=== PATIENT | female | born 1935 | race Caucasian/White ===

== ENCOUNTER 2020-01-29 19:53 | Emergency (ER) | payer OTHER ==
--- OUTSIDE RECORDS SUMMARY | 2020-01-29 20:05 | XMS ---
:1935 Author Organization [facility] Care Team Providers Name Role Phone Bernardo Yost MD Unavailable Unavailable Bernardo Yost MD Unavailable Unavailable Bernardo Yost MD Unavailable Unavailable Bernardo Yost MD Unavailable Unavailable Reema Arteaga MD Unavailable Unavailable Nelly ROCHA, Physician Delisa Unavailable Unavailable ALLERS, DUSTY AUTOMAT[employer] CLIPPER [employer] STRIPPER Unavailable Unavailable ALLERS, DUSTY [employer]OMAT[employer]IPPER [employer] STRIPPER Unavailable Unavailable ALLERS, DUSTY [employer]OM[employer]IPPER [employer] STRIPPER Unavailable Unavailable ALLERS, DUSTY [employer]OM[employer]IPPER [employer] STRIPPER Unavailable Unavailable ALLERS, DUSTY [employer]OM[employer]IPPER [employer] STRIPPER Unavailable Unavailable Sintia ROCHA, Physician Rona Unavailable Unavailab MARY GRACE Vernon MD Unavailable Unavailable AZHERSergio MD Unavailable Unavailable AZHER N MD Unavailable Unavailable AZHER N MD Unavailable Unavailable AZHERSergio MD Unavailable Unavailable AZHER N MD Unavailable Unavailable AZHER N MD Unavailable Unavailable AZHER N MD Unavailable Unavailable AZHER N MD Unavailable Unavailable AZHER N MD Unavailable Unavailable AZHER N MD Unavailable Unavailable AZHER, N MD Unavailable Unavailable AZHER N MD Unavailable Unavailable AZHER N MD Unavailable Unavailable AZHER, N MD Unavailable Unavailable AZHER, N MD Unavailable Unavailable AZHER N MD Unavailable Unavailable Malena MD, DLaney Unavailable Unavailable Tillmon, R Unavailable Unavailable Navin ROCHA, Physician A Unavailable Unavailable Jeramie ROCHA, Physician U Unavailable Unavailable Priscilla ROCHA, Physician Unavailable Unavailable Peace Fletcher Unavailable Unavailable Care Unavailable Unavailable Rolo LEO NLaney Unavailable Unavailable Rubia Lopes, Physician Unavailable Unavailable Beulah Espinoza Unavailable Unavailable Brody ROCHA, Physician B Unavailable Unavailable ER Unavailable Unavailable LING Unavailable Unavailable LING Unavailable Unavailable LING Unavailable Unavailable LING Unavailable Unavailable LING Unavailable Unavailable LING Unavailable Unavailable LING Unavailable Unavailable LING Unavailable Unavailable LING Unavailable Unavailable LING Unavailable Unavailable LING Unavailable Unavailable LING Unavailable Unavailable LING Unavailable Unavailable LING Unavailable Unavailable LING Unavailable Unavailable LING Unavailable Unavailable LING Unavailable Unavailable Mary Fletcher MD Unavailable Unavailable Kresch Unavailable Unavailable Georgia ROCHA, Physician C Unavailable Unavailable Bakrley Unavailable Unavailable Vipul ROCHA, Physician J Unavailable Unavailable PAYMAN, N Unavailable Unavailable PAYMAN, N Unavailable Unavailable PAYMAN, N Unavailable Unavailable PAYMAN, N Unavailable Unavailable PAYMAN, N Unavailable Unavailable PAYMAN, N Unavailable Unavailable PAYMAN, N Unavailable Unavailable PAYMAN, N Unavailable Unavailable PAYMAN, N Unavailable Unavailable PAYMAN, N Unavailable Unavailable PAYMAN, N Unavailable Unavailable PAYMAN, N Unavailable Unavailable PAYMAN, N Unavailable Unavailable PAYMAN, N Unavailable Unavailable PAYMAN, N Unavailable Unavailable PAYMAN, N Unavailable Unavailable PAYMAN, N Unavailable Unavailable PAYMAN, N Unavailable Unavailable PAYMAN, N Unavailable Unavailable PAYMAN, N Unavailable Unavailable PAYMAN, N Unavailable Unavailable PAYMAN, N Unavailable Unavailable INTWALA, MD Unavailable Unavailable INTWALA, MD Unavailable Unavailable INTWALA, MD Unavailable Unavailable INTWALA, MD Unavailable Unavailable INTWALA, MD Unavailable Unavailable INTWALA, MD Unavailable Unavailable INTWALA, MD Unavailable Unavailable INTWALA, MD Unavailable Unavailable INTWALA, MD Unavailable Unavailable INTWALA, MD Unavailable Unavailable INTWALA, MD Unavailable Unavailable INTWALA, MD Unavailable Unavailable INTWALA, MD Unavailable Unavailable Deisi ROCHA, R. Unavailable Unavailable Re-disclosure Warning The records that you are about to access may contain information from federally- assisted alcohol or drug abuse programs. If such information is present, then the following federally mandated warning applies: This information has been disclosed to you from records protected by federal confidentiality rules (42 CFR part 2). The federal rules prohibit you from making any further disclosure of this information unless further disclosure is expressly permitted by the written consent of the person to whom it pertains or as otherwise permitted by 42 CFR part 2. A general authorization for the release of medical or other information is NOT sufficient for this purpose. The Federal rules restrict any use of the information to criminally investigate or prosecute any alcohol or drug abuse patient.The records that you are about to access may contain highly sensitive health information, the redisclosure of which is protected by Article 27-F of the [facility] Public Health law. If you continue you may haveaccess to information: Regarding HIV / AIDS; Provided by facilities licensed or operated by the [facility] Office of Mental Health; or Provided by the [facility] Office for People With Developmental Disabilities. If such information is present, then the following [facility] mandated warning applies: This information has been disclosed to you from confidential records which are protected by state law. State law prohibits you from making any further disclosure of this information without the specific written consent of the person to whom it pertains, or as otherwise permitted by law. Any unauthorized further disclosure in violation of state law may result in a fine or assisted sentence or both. A general authorization for the release of medical or other information is NOT sufficient authorization for further disclosure. Allergies and Adverse Reactions Type Description Substance Reaction Status Data Source(s ) 1 LISINOPRIL [facility]ids [facility] 2 [facility] Miscellaneous Tape Tape [place] [facility] allergy - [facility] Drug allergy No Known No Known [place] [facility] Allergies Allergies - [facility] Encounters Encounter Providers Location Date Indications Data Source(s ) Outpatient Attender: Emelia 01/10/2020 NEXT GEN ([facility] TillmonReferrer: 03:45:00 PM Medical [facility] Emelia Tillmon ED Medica l Group ) Outpatient Attender: Kyle 12/27/2019 NEXTGEN ([facility] Justine 07:41:00 AM [facility] ) Outpatient Attender: Gregg 10/17/2019 NEXTGE N ([facility] Alexis 08:29:00 AM [facility] ) Outpatient Attender: Kyle 10/03/2019 NEXTGEN ([facility] Justine 06:53:00 AM [facility] ) Outpatient Attender: Gregg 09/02/2019 NEXTGE N ([facility] Alexis 08:45:00 AM [facility]) Outpatient Attender: Emelia 08/05/2019 NEXT GEN ([facility] Tillmon 10:16:00 AM [facility]) Outpatient Attender: DUSTY 07/27/2019 NEXTGEN ([facility] [employer]ERS [employer] 08:39:00 AM [facility] PC) Outpatient Attender: Emelia 07/09/2019 NEXT GEN ([facility] Tillmon 10:45:00 AM [facility] Medical [facility] PC) Outpatient Attender: 07/08/2019 NEXTGE N ([facility] ChoudhuryReferrer: 03:00:00 PM Medic al - [facility] [place] Alexis EST Medica l [facility] PC) Outpatient Attender: Kyle 07/05/2019 NEXTGEN ([facility] Justine 09:46:00 AM Medical [facility]) Outpatient Attender: 06/25/2019 NEXTGE N ([facility] Alexis 10:17:00 AM [facility] Medical [facility] PC) Outpatient Attender: 06/23/2019 NEXTGEN ([facility] Justine 06:18:00 PM [facility] Medical [facility]) Outpatient Attender: Emelia 2019 NEXT GEN ([facility] [place]mon 09:07:00 AM [facility] Group PC) Outpatient Attender: Emelia 05/16/2019 NEXT GEN ([facility] TillmonReferrer: 02:30:00 PM [facility] Emelia Tillmon EST Medica [facility] PC) Outpatient Attender: Emelia 05/10/2019 NEXT GEN ([facility] [place] 03:06:00 PM [facility] Medical [facility] PC) Outpatient Attender: Emelia 05/10/2019 NEXT GEN ([facility] TillmonReferrer: 12:00:00 AM [facility] Emelia Tillmon EST Medica l [facility] PC) Outpatient Attender: 04/05/2019 NEXTGEN ([facility] Justine 07:52:00 AM [facility] Medical [facility] PC) Outpatient Attender: 03/18/2019 NEXTGE N ([facility] ChoudhuryReferrer: 03:15:00 PM Medic al [facility] [place] Alexis EST Medica l [facility] PC) Outpatient Attender: 03/10/2019 NEXTGE N ([facility] ChoudhuryReferrer: 12:00:00 AM Medic al - [facility] [place] Alex[place] EST Medica l Group PC) Outpatient Attender: DUSTY 03/04/2019 NEXTGEN ([facility] [employer] 02:32:00 PM Medical - [facility] Group PC) Outpatient Attender: Gregg 03/01/2019 NEXTGE N ([facility] [place] 07:57:00 AM Medical - [facility] PC) Outpatient Attender: DUSTY 02/28/2019 NEXTGEN ([facility] [employer] 10:04:00 AM Medical - [facility] PC) Outpatient Attender: DUSTY 02/07/2019 NEXTGEN ([facility] [employer] 09:04:00 AM Medical - [facility] PC) Outpatient Attender: Emelia 01/11/2019 NEXT GEN ([facility] TillmonReferrer: 03:00:00 PM Medical - [facility] [place] [facility]mon EDT Medica l Group PC) Outpatient Attender: MARY GRACE 01/10/2019 NEXTGEN ([facility] AZHER MDReferrer: 03:45:00 PM Medica l - [facility] MARY GRACE NOBLE MD ED Medical Group PC) Outpatient Attender: Kyle 01/10/2019 NEXTGEN ([facility] Justine 07:37:00 AM Medical - [facility] PC) Outpatient Attender: Emelia 01/04/2019 NEXT GEN ([facility] [place]mon 02:23:00 PM Medical - [facility] PC) Outpatient Attender: Emelia 12/08/2018 NEXT GEN ([facility] TillmonReferrer: 12:00:00 AM Medical - [facility] Emelia Tillmon EDT Medica l Group PC) Outpatient Attender: Gregg 12/07/2018 NEXTGE N ([facility] ChoudhuryReferrer: 02:45:00 PM Medic al - [facility] [place] Alexis EDT Medica l Group PC) Outpatient Attender: Gregg 12/04/2018 NEXTGE N ([facility] ChoudhuryReferrer: 01:00:00 PM Medic al - D[place] Alexis EDT Medica l Group PC) Outpatient Attender: Gregg 12/04/2018 NEXTGE N ([facility] [place] 11:33:00 AM Medical - [place] EDT Medical Group PC) Outpatient Attender: Emelia 11/29/2018 NEXT GEN ([facility] TillmonReferrer: 04:13:00 PM Medical - [place] [employer] [facility] EDT Medical Grou p PC) Outpatient Attender: Emelia 11/29/2018 NEXT GEN ([facility] [place] 03:28:00 PM [facility] Outpatient Attender: Emelia 11/24/2018 NEXT GEN ([facility] [place] 02:28:00 PM Medical - [place] EDT Medical Group PC) Outpatient Attender: Emelia 11/23/2018 NEXT GEN ([facility] TillmonReferrer: 04:13:00 PM Medical - [place] [facility] Lead EDT Medical Grou p PC) Outpatient Attender: Emelia 11/22/2018 NEXT GEN ([facility] TillmonReferrer: 08:00:00 AM Medical - [place] [facility] EDT Medical Grou p PC) Outpatient Attender: Emelia 11/19/2018 NEXT GEN ([facility] [place] 06:14:00 PM Medical - [facility] [place] [facility] ) Outpatient Attender: Emelia 11/18/2018 NEXT GEN ([facility] [place] 04:17:00 PM Medical - [facility] [place] [facility] ) Outpatient Attender: Kyle 11/18/2018 NEXTGEN ([facility] WeinbergerReferrer: 08:13:00 AM [facility] ) RubiaConsultant: 11/19/2018 Kyle Fletcher 12:00:00 AM EDT T Attender: Phys[facility] 01:15:00 PM Rosina mays M.D.Attender: Myron [facility] KreschAttender: 11/19/2018 ERAdmitter: 01:28:00 PM Physician Marilyn Barkley M.D.Solar Designer: DREW REYEZConsultant: NAN GARCIAonsultant: Physician Marilyn Barkley M.D.Solar Designer: Kyle Fletcher MD Patient discharged. Outpatient Attender: Emelia 11/17/2018 11:20:00 AM NEXTGEN ([facility] EDT Medical - [facility]) Outpatient Attender: Emelia 11/16/2018 03:54:00 PM NEXTGEN ([facility] EDT Medical - [facility]) Emergency Attender: Shanti Seth 11/14/2018 07:07:[address] [facility] DOAttender: EDT - 11/14/2018 [facility] ERAdmitter: Shanti Seth 08:36:00 PM EDT DO Outpatient Attender: Gregg 11/08/2018 07:36:00 AM NEXTGEN ([facility] Alexis EDT Medical - [facility]) Outpatient Attender: Emelia 11/03/2018 02:00:00 PM NEXTGEN ([facility] TillmonReferrer: EDT Medical - [facility] Emergency Attender: Namita 11/01/2018 11:16:[address] [facility] Deisi MDAttender: EDT - 11/01/2018 [facility] ERAdmitter: Namita 04:25:00 PM AMISH Lipscomb MD Outpatient Attender: Emelia 11/01/2018 09:11:00 AM NEXTGEN ([facility] EDT Medical - [facility]) Outpatient Attender: Gregg 10/22/2018 08:03:00 AM NEXTGEN ([facility] Alexis EDT Medical - [facility]) Outpatient Attender: Emelia 10/20/2018 08:09:00 AM NEXTGEN ([facility] [place] EDT Medical - [facility]) Outpatient Attender: DUSTY MISTRY 10/19/2018 10:06:00 AM NEXTGEN ([facility] [employer] EDT Medical - D[facility]) Outpatient Attender: MARY GRACE NOBLE 10/19/2018 10:05:00 AM NEXTGEN ([facility] MD EDT Medical - D[facility]) Outpatient Attender: DUSTY MISTRY 10/19/2018 10:05:00 AM NEXTGEN ([facility] [employer] EDT Medical - D[facility]) Outpatient Attender: Kyle 10/12/2018 07:44:00 AM NEXTGEN ([facility] Justine EDT Medical - [facility]) Outpatient Attender: Gregg 10/05/2018 11:30:00 AM NEXTGEN ([facility] Alexis EDT Medical - [facility]) Outpatient Attender: Kyle 08/31/2018 01:51:00 PM NEXTGEN ([facility] Justine EDT Medical - [facility]) Outpatient Attender: Gregg 08/20/2018 02:15:00 PM NEXTGEN ([facility] ChoudhuryReferrer: EDT Medica l - Dc [place] [facility] [facility] Medica l Group PC) Outpatient Attender: Emelia 08/17/2018 11:04:00 AM NEXTGEN ([facility] [place] EDT Medical - [facility]) Outpatient Attender: Emelia 08/06/2018 03:00:00 PM NEXTGEN ([facility] TillmonReferrer: EDT Medical - [facility]) Outpatient Attender: Gregg 08/05/2018 08:32:00 AM NEXTGEN ([facility] Alexis EDT Medical - [facility]) Outpatient Attender: Kyle 07/15/2018 07:04:00 PM NEXTGEN ([facility] Justine EDT Medical - [facility]) T Attender: Physician 01/25/2018 12:53:[address] [facility] - 01/28/2018 [facility] MDAdmitter: Physician 05:02:00 PM EDT Bernardo Bobo MDConsultant: Physician [facility] MDConsultant: Physician Rona Patricio MDConsultant: Physician Jenifer Ho MD Patient discharged. Inpatient Attender: Physician Marilyn 10/24/2017 11:15:0 0 PM Brent Barkley M.D.Admitter: Physician EDT - 10/27/2017 Rosina Barkley 02:14:00 PM EDT [facility] Prosper LopesSolar Designer: Physician Marilyn Barkley M.D. Inpatient Attender: Physician Salvatore 08/27/2017 02:53:00 PM [facility] Fifi Wells MDAdmitter: Physician EDT - 08/31/2017 Rosina Wells MDConsultant: 04:42:00 PM EDT [facility] SURYConsultant: Bernardo Yost MDConsultant: Reema Arteaga MDConsultant: Physician Salvatore Wells MDConsultant: Physician Re Skinner MDConsultant: Eulalio Guy MDConsultant: Physician Delisa Villegas MDConsultant: Physician Ney Matthew MD Medications Medication Brand Start Product Dose Route Administrative Pharmacy [facility] Indications Reaction Description Data Name Date Form Instructions Instructions Source(s) Amoxicillin AMOXIC 01/09/ take 1 tablet RP NEXTGEN 500 MG Oral ILLIN 2019 by oral route ([facility] Tablet 500 12:00: every 8 hours Medical - mg 500 mg 00 AM [facility]) This may be an active medication. No end date is available. atorvastatin 20 MG LIPITOR 10/17/2019 TAKE 1 RP NEXTGEN Oral Tablet 12:00:00 AM EDT TABLET BY ([facility] [Lipitor] 20 mg 20 MOUTH EVERY Medical - Mt mg DAY [facility]) This may be an active medication. No end date is available. 325 mg (65 mg 10/03/2019 12:00:00 TAKE 1 TABLET RP NEXTGEN ([facility] iron) 325 mg AM EDT BY MOUTH TWICE Medical - Mt Kisc (65 mg iron) A DAY Medica l Group ) This may be an active medication. No end date is available. 24 HR metoprolol TOPROL XL 09/02/2019 TAKE 1 RP NEXTGEN succinate 25 MG 12:00:00 AM EDT TABLET BY ([facility] Extended Release MOUTH EVERY Medical - Mt Oral Tablet DAY [facility]ical [Toprol] 25 mg Group ) 25 mg This may be an active medication. No end date is available. Donepezil DONEPEZIL HCL 07/27/2019 TAKE 1 RP NEXTGEN hydrochloride 10 12:00:00 AM TABLET BY ([facility] MG Oral Tablet 10 EDT MOUTH EVERY Medical - Mt mg 10 mg DAY IN THE [facility] EVENING Group PC) This may be an active medication. No end date is available. pantoprazole 40 MG PROTONIX 07/09/2019 TAKE 1 RP NEXTGEN Delayed Release 12:00:00 AM EST TABLET BY ([facility] Oral Tablet MOUTH TWICE M edical - Mt [Protonix] 40 mg A DAY [facility] Medical 40 mg Group ) This may be an active medication. No end date is available. 325 mg (65 mg 07/05/2019 12:00:00 TAKE 1 TABLET RP NEXTGEN ([facility] iron) 325 mg AM EST BY MOUTH TWICE Medical - [facility] Camp[facility] (65 mg iron) A DAY Medica l Group ) This may be an active medication. No end date is available. atorvastatin 20 MG LIPITOR 06/25/2019 TAKE 1 RP NEXTGEN Oral Tablet 12:00:00 AM EST TABLET BY ([facility] [Lipitor] 20 mg 20 MOUTH EVERY Medical - Mt mg DAY [facility]) This may be an active medication. No end date is available. Sucralfate 1000 SUCRALFATE 06/23/2019 TAKE 1 TABLET RP NEXTGEN MG Oral Tablet 12:00:00 AM EST 4 TIMES A DAY ([facility] 1 gram 1 gram ON EMPTY Sd dical - Dc STOMACH, 1 [facility] Med ical HOUR BEFORE Group PC ) MEALS AND AT BEDTIME This may be an active medication. No end date is available. Levothyroxine LEVOTHYROXINE 2019 TAKE 1/2 RP NEXTGEN Sodium 0.075 MG SODIUM 12:00:00 AM TABLET BY ([facility] Oral Tablet 75 EST ORAL ROUTE Medical - Dc mcg 75 mcg EVERY DAY [facility] Medical 05/05 Group ) This may be an active medication. No end date is available. Memantine MEMANTINE HCL 03/04/2019 TAKE 1 RP NEXTGEN hydrochloride 5 12:00:00 AM TABLET BY ([facility] MG Oral Tablet 5 EDT MOUTH Me dical - Mt mg 5 mg TWICE A [facility] Med ical DAY Group ) This may be an active medication. No end date is available. Donepezil DONEPEZIL HCL 02/28/2019 TAKE 1 RP NEXTGEN hydrochloride 10 12:00:00 AM TABLET BY ([facility] MG Oral Tablet 10 EDT ORAL ROUTE Medical - Mt mg 10 mg EVERY DAY [facility] IN THE Group ) EVENING This may be an active medication. No end date is available. Furosemide 20 MG LASIX 12/07/2018 take 1 by RP NEXTGEN Oral Tablet 12:00:00 AM EDT oral route ([facility] [Lasix] 20 mg 20 every day Medical - Mt mg PRN [facility] ) This may be an active medication. No end date is available. Aspirin 81 MG ASPIR 81 12/07/2018 take 1 by RP NEXTGEN Delayed 12:00:00 AM EDT oral route ([facility] Release Oral every day Me dical - Mt Tablet 81 mg [facility] edical 81 mg Group ) This may be an active medication. No end date is available. 24 HR metoprolol TOPROL XL 12/04/2018 TAKE 1 RP NEXTGEN succinate 25 MG 12:00:00 AM EDT TABLET BY ([facility] Extended Release MOUTH EVERY Medical - Mt Oral Tablet DAY [facility] dical [Toprol] 25 mg Group ) 25 mg This may be an active medication. No end date is available. Aspirin 81 aspirin 81 11/19/2018 81.0 Oral [place] MG Delayed mg oral 10:13:00 AM mg 81 mg, = 1 tab, Oral, Daily, # 30 tab, 0 Refill(s), Pharmacy: [facility]/pharmacy #[id number], 1 tab Oral Daily Health - Release enteric EDT [place] Oral Tablet coated Bro[place] rs aspirin 81 tablet Medical mg oral Center enteric coated tablet Docusate Colace 100 11/19/2018 100.0 Oral [place] Sodium 100 mg oral 10:09:00 AM mg 100 mg, = 1 cap, Oral, BID, # 20 cap, 0 Refill(s), for constipation, Pharmacy: [facility]/pharmacy #[id number], 1 cap Oral BID,PRN:for constipation Health - MG Oral capsule EDT [place] Capsule Brothers Colace 100 Medical mg oral Center capsule Mupirocin MUPIROCIN 11/03/2018 apply by RP NEXTGEN 0.02 MG/MG 12:00:00 AM topical ([facility] Topical EDT route 3 t Medical Ointment 2 times - Mt % 2 % every day [place] a small Medical amount to Group PC) the affected area This may be an active medication. No end date is available. Cephalexin 500 Keflex 500 11/01/2018 500.0 Oral [place] MG Oral mg oral 04:04:00 PM mg 500 mg, = 1 cap, Oral, q8hr (specified start), # 21 cap, 0 Refill(s), Pharmacy: [id number], 1 cap Oral q8hr (specified start),x7 day(s) Health - Capsule Keflex capsule EDT [facility] 500 mg oral [facility] pantoprazole PROTONIX 10/20/2018 take 1 RP NEXTGEN 40 MG Delayed 12:00:00 AM tablet ([facility] Release Oral EDT by oral t Me dical Tablet route 2 - Mt [Protonix] 40 times [place] mg 40 mg every Medical day Group PC) This may be an active medication. No end date is available. "" "" 02/02/2018 12:00:00 AM 1 by mouth daily RP NEXTGEN ([facility] EDT Medical - Mt [facility]) This may be an active medication. No end date is available. Docusate Colace 100 01/28/2018 Capsule 100.0 Oral [place] Sodium 100 mg oral 10:13:00 AM mg 100 mg, = 1 cap, Oral, BID, # 60 cap, 0 Refill(s), [facility]acy[id number], 1 cap Oral BID Health - MG Oral capsule EDT [place] [facility] Medical mg oral Center capsule Sucralfate sucralfate 01/24/2018 Tablet 1.0 g Oral [place] 1000 MG Oral 1 g oral 10:24:00 PM 1 gm, = 1 tab, Oral, With meals Health - Tablet tablet EDT [place] sucralfate 1 Brother s g oral Medical tablet Center Levothyroxin levothyroxi 01/24/2018 Tablet 37.5 Oral [place] e Sodium ne 75 mcg 10:24:00 PM ug 37.5 mcg, = 0.5 tab, Oral, Daily Health - 0.075 MG (0.075 mg) EDT [place] Oral Tablet oral tablet B rothers levothyroxin Medical e 75 mcg Center (0.075 mg) oral tablet 7 ACTUAT INCRUSE 01/05/2018 INHA RP NE XTGEN umeclidinium ELLIPTA 12:00:00 AM LE 1 ([facility] 0.0625 EDT PUFF t Medical MG/ACTUAT BY - Mt Dry Powder INHA [place] Inhaler LATI Medical [Incruse] ON Group PC) 62.5 ROUT mcg/actuatio E n 62.5 EVER mcg/actuatio Y n DAY AT THE SAME TIME EACH DAY This may be an active medication. No end date is available. 17 ML ferumoxytol FERAHEME 11/10/2017 510 mg IV RP NEXTGEN 30 MG/ML Injection 12:00:00 AM EDT day 1 and ([facility] [Feraheme] 510 day 8 Medi keara - Mt mg/17 mL (30 [place] M edical mg/mL) 510 mg/17 Norma up PC) mL (30 mg/mL) This may be an active medication. No end date is available. Ferrous [id number] 10/25/2017 Tablet 325.0 Oral N uvance Sulfate 01:55:00 AM mg 325 mg, Or al, [facility] - EDT [facility] Breo Ellipta [id number] 08/27/2017 1.0 Inhalation [place] 200 mcg-25 03:23:00 PM 1 puff( s), INH, QHS, 0 Refill(s) Health - mcg/inh EDT [place] [facility] 30 ACTUAT BREO 08/26/2017 inhale 1 RP NEXTGEN fluticasone ELLIPTA 12:00:00 AM puff by ([facility] furoate 0.2 EDT inhalatio t M edical MG/ACTUAT / n route - Mt vilanterol every day Kisc o 0.025 at the Medical MG/ACTUAT same time Group PC) Dry Powder each day Inhaler [Breo] 200 mcg-25 mcg/dose 200 mcg-25 mcg/dose This may be an active medication. No end date is available. Pantoprazole [id number] 05/29/2017 Enteric 40.0 Oral [place] 10:09:00 PM Coated mg 40 mg, Oral , Daily [facility] Tablet [facility] multivitamin [id number] 05/29/2017 Tablet 1.0 Oral [place] 10:06:00 PM 1 tab, Oral, Daily [facility] "" "" 12/17/2016 take 1 RP NEXTGE N 12:00:00 AM tablet ([facility] EDT by oral t [facility] This may be an active medication. No end date is available. Vitamin E 1000 VITAMIN E 12/17/2016 take 1 po RP NEXTGEN UNT Oral 12:00:00 AM EDT daily ([facility] Capsule 1,000 Medica l - Mt unit 1,000 [employer] Med ical unit Group [facility]) This may be an active medication. No end date is available. Plavix [id number] 05/18/2016 75.0 Oral Nuvan ce 02:52:00 PM mg 75 mg, Oral, Daily, 0 Refill(s) [facility] Incruse Ellipta [id number] 05/15/2016 Oral 62.5 Inhalation [place] 04:29:00 PM Inhaler ug 62.5 mcg = , INH, QAM, 0 Refill(s) [facility] donepezil [id number] 05/14/2016 Tablet 10.0 Oral [place] 10:41:00 AM mg 10 mg, Oral, QHS, 0 Refill(s) [facility] Metoprolol [id number] 05/14/2016 Extended 25.0 Oral [place] Succinate ER 10:41:00 AM Release mg 25 mg, Oral, Daily, 0 Refill(s) [facility] Tablet [facility] atorvaSTATin [id number] 05/14/2016 Tablet 20.0 Oral [place] 10:41:00 AM mg 20 mg, Oral, QHS, 0 Refill(s) [facility] vitamin E [id number] 05/14/2016 Capsule 1000. Oral [place] 10:41:00 AM 0 1,000 IntUnit , Oral, Daily, 0 Refill(s) [facility] [iU] [facility] spironolactone [id number] 05/14/2016 Tablet 25.0 Oral [place] 10:41:00 AM mg 25 mg, Oral, QHS, 0 Refill(s) [facility] Insurance Providers Payer name Policy type Policy ID Covered Covered constitution party's Policy P leni / Coverage constitution party ID relationship to [place] Inf ormation type cancino MEDICARE [id number] B AETN Aetna [id number] Healthcare Medicare AETN Aetna [id number] Healthcare Medicare WELC [employer] [id number] 1 [id number] [facility] Option PPO MDCR [facility] [id number] Medicare HMO Problems, Conditions, and Diagnoses Code Display Name Description Problem Type Effective Data Dates Source(s) J44.9 Chronic obstructive Chronic obstructive Diagnosis NEXTGEN pulmonary disease, pulmonary disease, 03:45:00 PM ([facility] unspecified unspecified [facility]) I10 Essential (primary) Essential (primary) Diagnosis NEXTGEN hypertension hypertension 03:45:00 PM [facility] N39.0 Urinary tract Urinary tract Diagnosis 01/10/2020 NEXTGEN infection, site not infection, site not 03:45:0 0 PM ([facility] specified specified [facility]) D63.1 Anemia in chronic Anemia in chronic Diagnosis 01/10/2020 NEXTGEN kidney disease kidney disease 03:45:00 PM ([facility]) E03.9 Hypothyroidism, Hypothyroidism, Diagnosis 01/10/2020 NEXT GEN unspecified unspecified 03:45:00 PM ([facility]) I47.1 Supraventricular Supraventricular Diagnosis 07/08/2019 NE XTGEN tachycardia tachycardia 03:00:00 PM ([facility]) I34.0 Nonrheumatic mitral Non-rheumatic mitral Diagnosis 2019 NEXTGEN (valve) regurgitation 03:00:00 PM ([facility] Medical - t [facility]) I35.0 Nonrheumatic aortic Nonrheumatic aortic Diagnosis NEXTGEN (valve) stenosis valve stenosis 03:00:00 PM ([facility]) I42.9 Cardiomyopathy, Cardiomyopathy, Diagnosis 07/08/2019 NEXT GEN unspecified unspecified 03:00:00 PM ([facility]) R60.0 Localized edema Bilateral lower Diagnosis 07/08/2019 NEXT GEN extremity edema 03:00:00 PM ([facility]) 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.1 Persistent Persistent Diagnosis 05/10/2019 NEXTGEN proteinuria, proteinuria, 12:00:00 AM ([facility] t unspecified unspecified [facility]) E78.00 Pure Pure Diagnosis 05/10/2019 NEXTGEN hypercholesterolemia hypercholesterolemia 12:00 :00 AM ([facility] , unspecified , unspecified [facility]) D50.0 Iron deficiency Iron deficiency Diagnosis 05/10/2019 NEXT GEN anemia secondary to anemia secondary to 12:00:0 0 AM ([facility] blood loss (chronic) blood loss (chronic) [facility]) I50.9 Heart failure, Heart failure, Diagnosis 05/10/2019 NEXTGE N unspecified unspecified 12:00:00 AM ([facility]) D64.9 Anemia, unspecified Anemia, unspecified Diagnosis NEXTGEN 12:00:00 AM ([facility]) R06.02 Shortness of breath Exertional shortness Diagnosis 2018 NEXTGEN of breath 03:15:00 PM ([facility] EST Medical [facility]) N18.4 Chronic kidney Chronic kidney Diagnosis 01/11/2019 NEXTGE N disease, stage 4 disease, stage 4 03:00:00 PM ( [facility] (severe) (severe) EDT [facility]) K92.2 Gastrointestinal Gastrointestinal Diagnosis 11/17/2018 Nu jerry hemorrhage, hemorrhage, 01:15:00 PM Health - unspecified unspecified EDT [facility] Z13.820 Encounter for Screening for Diagnosis 08/06/2018 NEXTGEN screening for osteoporosis 03:00:00 PM ([facility] osteoporosis EDT [facility]) D47.3 Essential Essential Diagnosis 08/06/2018 NEXTGEN (hemorrhagic) (hemorrhagic) 03:00:00 PM ([facility] thrombocythemia thrombocythemia EDT [facility]) Z00.00 Encounter for Medicare annual Diagnosis 08/06/2018 NEXTGE N general adult wellness visit, 03:00:00 PM ([facility] [place] [facility] medical examination subsequent EDT Medic al - Dc without abnormal [facility] Medical [facility]) R41.82 Altered mental Altered mental Diagnosis 01/24/2018 Nuvanc e status, unspecified status, unspecified 08:16:0 0 [facility] Z[facility] 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 [place] use of aspirin use of aspirin 08:16:00 PM Healt - [facility] D50.9 Iron deficiency Iron deficiency Diagnosis 01/24/2018 Nuva nce anemia, unspecified anemia, unspecified 08:16:0 0 [facility] 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 01/24/2018 [place] supplemental oxygen supplemental oxygen 08:16:0 0 PM [facility] K27.9 Peptic ulcer, site Peptic ulcer, site Diagnosis 8 [place] unspecified, unspecified, 08:16:00 PM Health - unspecified as acute unspecified as acute EDT [place] or chronic, without or chronic, without [facility] hemorrhage or hemorrhage or Medical perforation perforation Center E03.9 Hypothyroidism, Hypothyroidism, Diagnosis 01/24/2018 Geraldineva nce unspecified unspecified 08:16:00 PM Health - EDT [facility] F03.90 Unspecified dementia Unspecified dementia Diagnosis 01/24 [place] without behavioral without behavioral 08:16:00 PM Health - disturbance disturbance EDT [facility] N18.3 Chronic kidney Chronic kidney Diagnosis 01/24/2018 Faithc e disease, stage 3 disease, stage 3 08:16:00 PM H ealth - (moderate) (moderate) EDT [facility] Z95.5 Presence of coronary Presence of coronary Diagnosis 01/24 Brent angioplasty implant angioplasty implant 08:16:0 0 PM Health - and graft and graft EDT [facility] I25.10 Atherosclerotic Atherosclerotic Diagnosis 01/24/2018 Darion webstere heart disease of heart disease of 08:16:00 PM H ealth - [place] coronary wrangell coronary EDT Anjelica ar artery without artery without Brothe rs angina pectoris angina pectoris [facility] Z66 Do not resuscitate Do not resuscitate Diagnosis 8 [place] 08:16:00 PM Health - EDT [facility] B96.20 Unspecified Unspecified Diagnosis 01/24/2018 Brent Escherichia coli [E. Escherichia coli [E. 08:16 :00 PM Health - coli] as the cause coli] as the cause EDT [place] of diseases of diseases [place] classified elsewhere classified elsewhere [facility] Z68.1 Body mass index Body mass index Diagnosis 01/24/2018 Darion webstere (BMI) 19.9 or less, (BMI) 19.9 or less, 08:16:0 0 PM Health - adult adult EDT [facility] J44.0 Chronic obstructive Chronic obstructive Diagnosis 018 Faithce pulmonary disease pulmonary disease 08:16:00 PM Health - with acute lower with acute lower EDT [facility] respiratory respiratory [place] infection infection [facility] N39.0 Urinary tract Urinary tract Diagnosis 01/24/2018 Brent infection, site not infection, site not 08:16:0 0 PM Health - specified specified EDT [facility] J18.9 Pneumonia, Pneumonia, Diagnosis 01/24/2018 [place] unspecified organism unspecified organism 08:16 :00 PM Health - EDT [facility] A41.9 Sepsis, unspecified Sepsis, unspecified Diagnosis 018 [place] organism organism 08:16:00 PM [facility] - EDT [facility] J44.1 Chronic obstructive Chronic obstructive Diagnosis 018 [place] pulmonary disease pulmonary disease 11:15:00 PM Health - with (acute) with (acute) EDT [place] exacerbation exacerbation [facility] I50.23 Acute on chronic Acute on chronic Diagnosis 10/24/2017 Nu jerry systolic systolic 11:15:00 PM Health - (congestive) heart (congestive) heart EDT [place] failure failure [facility] D64.9 Anemia, unspecified Anemia, unspecified Diagnosis 018 [place] 02:53:00 PM [facility] - EDT [facility] Surgeries/Procedures Procedure Description Date Indications Data Source(s) IIV NO PRSV INCREASED AG IIV NO PRSV INCREASED AG 01/10/2020 NEXTGEN IM IM 12:00:00 ([facility]) IMMUNIZATION ADMIN IMMUNIZATION ADMIN 01/10/2020 NEX TGEN 12:00:00 ([facility]) OFFICE/OUTPATIENT VISIT OFFICE/OUTPATIENT VISIT 01/10/2020 NEXTGEN EST EST 12:00:00 ([facility]) ELECTROCARDIOGRAM ELECTROCARDIOGRAM 07/08/2019 NEXTG EN COMPLETE COMPLETE 12:00:00 ([facility]) COMPLETE CBC W/AUTO DIFF COMPLETE CBC W/AUTO DIFF 05/10/2019 NEXTGEN WBC WBC 12:00:00 ([facility]) ASSAY THYROID STIM ASSAY THYROID STIM 05/10/2019 NEX TGEN HORMONE HORMONE 12:00:00 ([facility]) ASSAY OF FREE THYROXINE ASSAY OF FREE THYROXINE 05/10/2019 NEXTGEN 12:00:00 ([facility]) IRON BINDING TEST IRON BINDING TEST 05/10/2019 NEXTG EN 12:00:00 ([facility]) VITAMIN D 25 HYDROXY VITAMIN D 25 HYDROXY 05/10/2019 NEXTGEN 12:00:00 ([facility]) LIPID PANEL LIPID PANEL 05/10/2019 NEXTGEN 12:00:00 ([facility]) COMPREHEN METABOLIC COMPREHEN METABOLIC 05/10/2019 N EXTGEN PANEL PANEL 12:00:00 ([facility]) ROUTINE VENIPUNCTURE ROUTINE VENIPUNCTURE 05/10/2019 NEXTGEN 12:00:00 [facility] URINALYSIS AUTO W/SCOPE URINALYSIS AUTO W/SCOPE 05/10/2019 NEXTGEN 12:00:00 ([facility]) Administration of Admin influenza virus 01/11/2019 N EXTGEN influenza virus vaccine vac 12:00:00 ([facility]) SUBSEQUENT HOSPITAL CARE SUBSEQUENT HOSPITAL CARE 11/19/2018 NEXTGEN 12:00:00 ([facility]) INITIAL HOSPITAL CARE INITIAL HOSPITAL CARE 11/18/2018 NEXTGEN 12:00:00 ([facility]) OFFICE/OUTPATIENT VISIT OFFICE/OUTPATIENT VISIT 11/03/2018 NEXTGEN EST EST 12:00:00 [facility] OFFICE/OUTPATIENT VISIT OFFICE/OUTPATIENT VISIT 08/06/2018 NEXTGEN EST EST 12:00:00 ([facility]) Annual wellness visit, Ppps, subseq visit 08/06/2018 NEXTGEN includes a personalized 12:00:00 ([facility] prevention plan of [facility] service (pps), [facility] subsequent visit Group ) EGD - SN (None) 08/28/2017 Brent caceres 04:28:00 - [place] PM [facility] auto-populated from documented surgical case EGD - SN (None) 05/21/2017 01:26:00 PM EST [facility] auto-populated from documented surgical case PCI to RCA 05/14/2016 12:00:00 AM EST N [facility] PCI to RCA 05/04/1999 12:00:00 AM EST N [facility] head shunt insertion post 05/04/1986 12:00:00 AM EST [facility] colon resection [facility] cautorized nose [facility] Results ID Date Data Source [id number] 11/19/2018 06:04:00 AM EDT [facility] Name Value Range Interpretation Description Data Sup porting Code Source(s) Document(s ) WBC 5.6 4.0-10.5 NO [place] x10(3)/[facility] RBC 3.36 3.80-5.20 LO [place] x10(6)/[facility] Hgb 10.2 11.4-15.1 LO [place] gm/dL [facility] Hct 29.9 % 36.0-46.0 [facility] MCV 89 fL 80-98 [facility] MCH 30.3 pg 26.0-34.0 NO [facility] MCHC 33.9 32.0-36.0 NO [place] gm/dL [facility] RDW 15.3 % 11.0-15.0 [facility] Platelet 288 150-400 NO [place] x10(3)/[facility] MPV 8.3 fL 8.5-13.0 [facility] ID Date Data Source [id number] 11/19/2018 06:04:00 AM EDT [facility] Name Value Range Interpretation Description Data Sup porting Code Source(s) Document(s ) Neut Auto 77.9 % 50.0-80.0 NO [facility] Lymph Auto 11.4 % 14.0-44.0 LO [facility] Ray Auto 7.7 % 0.0-12.0 NO [facility] Eos Auto 2.3 % 0.0-7.0 NO [facility] Baso Auto 0.7 % 0.0-3.0 NO [facility] Neut 4.3 2.0-8.4 NO [place] Absolute x10(3)/[facility] Lymph 0.6 0.6-4.8 NO [place] Absolute x10(3)/[facility] Ray 0.4 0.0-1.1 NO [place] Absolute x10(3)/[facility] Eos Absolute 0.1 0.0-0.5 NO [place] x10(3)/[facility] Baso 0.0 0.0-0.3 NO [place] Absolute x10(3)/[facility] ID Date Data Source [id number] 11/18/2018 10:51:00 AM EDT [facility] Name Value Range Interpretation Description Data Sup porting Code Source(s) Document(s ) Neut Auto 85.9 % 50.0-80.0 [facility] Lymph Auto 7.9 % 14.0-44.0 LO [facility] Ray Auto 4.5 % 0.0-12.0 NO [facility] Eos Auto 1.2 % 0.0-7.0 NO [facility] Baso Auto 0.5 % 0.0-3.0 NO [facility] Neut 5.5 2.0-8.4 NO [place] Absolute x10(3)/[facility] Lymph 0.5 0.6-4.8 LO [place] Absolute x10(3)/[facility] Ray 0.3 0.0-1.1 NO [place] Absolute x10(3)/[facility] Eos Absolute 0.1 0.0-0.5 NO [place] x10(3)/[facility] Baso 0.0 0.0-0.3 NO [place] Absolute x10(3)/[facility] ID Date Data Source [id number] 11/18/2018 10:51:00 AM EDT [facility] Name Value Range Interpretation Description Data Sup porting Code Source(s) Document(s ) WBC 6.4 4.0-10.5 NO [place] x10(3)/[facility] RBC 3.64 3.80-5.20 LO [place] x10(6)/[facility] Hgb 10.9 11.4-15.1 LO [place] gm/dL [facility] Hct 32.6 % 36.0-46.0 [facility] MCV 90 fL 80-98 NO [facility] MCH 30.0 pg 26.0-34.0 NO [facility] MCHC 33.5 32.0-36.0 NO [place] gm/dL [facility] RDW 15.5 % 11.0-15.0 [facility] Platelet 292 150-400 NO [place] x10(3)/[facility] MPV 8.0 fL 8.5-13.0 [facility] ID Date Data Source [id number] 11/18/2018 07:13:00 AM EDT [facility] Name Value Range Interpretation Code Description Data Yesi rce(s) Supporting Document(s ) eGFR-AA 37 >=60 LO [facility] mL/min/1.[address] [place] [address] Added by Discern Rule GLB_ADD_GFR_BMP eGFR-SANJANA 30 mL/min/1.73m2 >=60 LO [facility] Added by Discern Rule GLB_ADD_GFR_BMP ID Date Data Source [id number] 11/18/2018 07:13:00 AM EDT [facility] Name Value Range Interpretation Description Data Sup porting Code Source(s) Document(s ) Glucose Lvl 86 mg/dL 65-99 NO [facility] BUN 35.0 6.0-20.0 HI [place] mg/dL [facility] Creatinine 1.63 0.40-1.0 HI [place] mg/dL 0 [facility] BUN/Creat 21.5 7.0-29.0 NO [place] Ratio ratio [facility] Sodium Lvl 142 136-145 NO [place] mmol/L [facility] Potassium Lvl 3.8 3.5-5.1 NO [place] mmol/L [facility] Chloride 112 98-107 HI [place] mmol/L [facility] CO2 20 23-29 LO [place] mmol/L [facility] AGAP 10 5-15 NO [facility] Calcium Lvl 8.5 8.6-10.0 LO [place] mg/dL [facility] ID Date Data Source [id number] 11/18/2018 07:01:00 AM EDT [facility] Name Value Range Interpretation Description Data Sup porting Code Source(s) Document(s ) Neut Auto 82.3 % 50.0-80.0 HI [facility] Lymph Auto 8.4 % 14.0-44.0 LO [facility] Ray Auto 7.0 % 0.0-12.0 NO [facility] Eos Auto 1.8 % 0.0-7.0 NO [facility] Baso Auto 0.5 % 0.0-3.0 NO [facility] Neut 5.6 2.0-8.4 NO [place] Absolute x10(3)/[facility] Lymph 0.6 0.6-4.8 NO [place] Absolute x10(3)/[facility] Ray 0.5 0.0-1.1 NO [place] Absolute x10(3)/[facility] Eos Absolute 0.1 0.0-0.5 NO [place] x10(3)/[facility] Baso 0.0 0.0-0.3 NO [place] Absolute x10(3)/[facility] ID Date Data Source [id number] 11/18/2018 07:01:00 AM EDT [facility] Name Value Range Interpretation Description Data Sup porting Code Source(s) Document(s ) WBC 6.8 4.0-10.5 NO [place] x10(3)/[facility] RBC 3.36 3.80-5.20 LO [place] x10(6)/[facility] Hgb 10.1 11.4-15.1 LO [place] gm/dL [facility] Hct 30.0 % 36.0-46.0 LO [facility] MCV 89 fL 80-98 NO [facility] MCH 29.9 pg 26.0-34.0 NO [facility] MCHC 33.6 32.0-36.0 NO [place] gm/dL [facility] RDW 14.9 % 11.0-15.0 NO [facility] Platelet 294 150-400 NO [place] x10(3)/[facility] MPV 7.9 fL 8.5-13.0 [facility] due @ 945 11/18/2018 02:15:37 EDT AW ID Date Data Source [id number] 11/18/2018 02:16:00 AM EDT [facility] Name Value Range Interpretation Description Data Sup porting Code Source(s) Document(s ) Neut Auto 80.7 % 50.0-80.0 [facility] Lymph Auto 9.5 % 14.0-44.0 [facility] Ray Auto 7.4 % 0.0-12.0 NO [facility] Eos Auto 1.7 % 0.0-7.0 NO [facility] Baso Auto 0.7 % 0.0-3.0 NO [facility] Neut 5.1 2.0-8.4 NO [place] Absolute x10(3)/[facility] Lymph 0.6 0.6-4.8 NO [place] Absolute x10(3)/[facility] Ray 0.5 0.0-1.1 NO [place] Absolute x10(3)/[facility] Eos Absolute 0.1 0.0-0.5 NO [place] x10(3)/[facility] Baso 0.0 0.0-0.3 NO [place] Absolute x10(3)/[facility] ID Date Data Source [id number] 11/18/2018 02:16:00 AM EDT [facility] Name Value Range Interpretation Description Data Sup porting Code Source(s) Document(s ) WBC 6.3 4.0-10.5 NO [place] x10(3)/[facility] RBC 3.51 3.80-5.20 LO vance x10(6)/[facility] Hgb 10.3 11.4-15.1 LO [place] gm/dL [facility] Hct 31.7 % 36.0-46.0 [facility] MCV 90 fL 80-98 NO [facility] MCH 29.4 pg 26.0-34.0 NO [facility] MCHC 32.6 32.0-36.0 NO vance gm/dL [facility] RDW 15.5 % 11.0-15.0 [facility] Platelet 283 150-400 [facility] MPV 8.4 fL 8.5-13.0 [facility] Patient just started blood transfusion. RN wants them to be drawn after 2200.Patient will likely be upstairs by then. 11/18/19 19:00:43 EDT sz ID Date Data Source [id number] 11/17/2018 04:39:00 PM EDT [facility] Name Value Range Interpretation Code Description Data Supporting Source(s) Document(s ) Occult Bld Negative [facility] ID Date Data Source [id number] 11/19/2018 11:18:00 AM EDT [facility] 1936 [phone] Microbiology - Urine Cultures PROCEDURE: Culture,Urine Void UrineBODY SITE:COLLECTED DATE/TIME: 11/17/2018 15:15 EDT RECEIVED DATE/T DANIEL: 11/17/2018 16:02 EDTSTART DATE/TIME: 11/17/2018 16:02 EDT FREE TEXT SOURCE:ORDERING PHYSICIAN: Татьяна ROCHA, Myron Bagley FINAL REPORTS *Final Report []Reported Date/Time: 11/19/2018 11:18 EDT<10,000 cfu/ml Gram N egative Rods No further workup PRELIMINARY REPORTS Preliminary Re port []Reported Date/Time: 11/18/2018 12:04 EDTThis culture is in progress and is be ing reincubated Name Value Range Interpretation Code Description Data Yesi rce(s) Supporting Document(s ) ID Date Data Source [id number] 11/17/2018 03:32:00 PM EDT [facility] Name Value Range Interpretation Description Data Sup porting Code Source(s) Document(s ) UA Color Yellow NO [facility] UA Appear Clear NO [facility] UA pH 5.0-8.0 NO [facility] UA Spec Grav 1.018 1.005-1.030 NO [facility] UA Glucose Negative NO [facility] UA Ketones Negative NO [facility] UA Urobilinogen 0.2-1.0 NO [facility] UA Bili Negative NO [facility] UA Blood Negative NO [facility] UA Protein Negative AB [facility] UA Nitrite Negative NO [facility] UA Leuk Est Negative AB [facility] ID Date Data Source [id number] 11/17/2018 03:32:00 PM EDT [facility] Name Value Range Interpretation Description Data Sup porting Code Source(s) Document(s ) UA WBC 0-5 NO [facility] UA RBC 0-2 NO [facility] UA Bacteria None Seen NO [facility] UA Epithelial Rare NO [facility] UA Microscopic added by ibrahima Antoine to an Abnormal Macroscopic Result. ID Date Data Source [id number] 11/17/2018 02:40:00 PM EDT [facility] Name Value Range Interpretation Code Description Data Yesi rce(s) Supporting Document(s ) ABSC Gel NO [facility] ID Date Data Source [id number] 11/17/2018 02:15:00 PM EDT [facility] Name Value Range Interpretation Code Description Data Yesi rce(s) Supporting Document(s ) ABO/Rh UN [facility] ID Date Data Source [id number] 11/17/2018 02:11:00 PM EDT [facility] Name Value Range Interpretation Description Data Sup porting Code Source(s) Document(s ) Glucose Lvl 213 65-99 [place] mg/dL [facility] BUN 41.0 6.0-20.0 HI [place] mg/dL [facility] Creatinine 2.08 0.40-1.0 HI [place] mg/dL 0 [facility] BUN/Creat 19.7 7.0-29.0 NO [place] Ratio ratio [facility] Sodium Lvl 138 136-145 NO [place] mmol/L [facility] Potassium Lvl 3.8 3.5-5.1 NO [place] mmol/L [facility] Chloride 107 98-107 NO [place] mmol/L [facility] CO2 21 23-29 LO [place] mmol/L [facility] AGAP 10 5-15 NO [place] [facility] Calcium Lvl 9.0 8.6-10.0 NO [place] mg/dL [facility] Total Protein 6.2 6.0-8.3 NO [place] gm/dL [facility] Albumin Lvl 2.8 3.5-5.0 LO [place] gm/dL [facility] Glob 3.4 2.0-4.5 NO [place] gm/dL [facility] A/G Ratio 0.8 1.0-2.2 LO [place] ratio [facility] Bili Total 0.6 0.3-1.2 NO [place] mg/dL [facility] Alk Phos 66 IU/L 38-126 NO [facility] AST 20 IU/L 15-41 NO [facility] ALT 13 IU/L 7-40 NO [facility] ID Date Data Source [id number] 11/17/2018 02:05:00 PM EDT [facility] Name Value Range Interpretation Code Description Data Ysei rce(s) Supporting Document(s ) eGFR-AA 28 >=60 [facility] mL/min/1.[address] Added by Discern Rule GLB_ADD_GFR_CMP eGFR-SANJANA 23 mL/min/1.73m2 >=60 [facility] Added by Discern Rule GLB_ADD_GFR_CMP ID Date Data Source [id number] 11/17/2018 02:04:00 PM EDT [facility] Name Value Range Interpretation Code Description Data Yesi rce(s) Supporting Document(s ) INR 1.1 ratio 0.9-1.2 NO [facility] PT 12.8 10.2-12.9 NO [facility](s) [facility] Indications INRProphylaxis ofvenous thromo-embolism: Non-hipsurgery...... .........................1.5 - 2.5 Hipsurgery.............................. .....2.0 - 3.0Deep VeinThrombosis or Pulmonary Embolism........2.0 - 3.0Preve ntion ofsystemic embolism in valvularheart disease, tissue prosthetic heartvalvesor acute [place]...................................... .2.0 -3.5Prevention of embolism in mechanical heartvalves or recurrentsystemic embolis m.............3.0 - 4.5 ID Date Data Source [id number] 11/17/2018 02:04:00 PM EDT [facility] Name Value Range Interpretation Code Description Data Eysi rce(s) Supporting Document(s ) APTT 37.1 27.4-38.2 [facility]() [facility] ID Date Data Source [id number] 11/17/2018 01:58:00 PM EDT [facility] Name Value Range Interpretation Description Data Sup porting Code Source(s) Document(s ) Neut Auto 88.9 % 50.0-80.0 [facility] Lymph Auto 7.0 % 14.0-44.0 [facility] Ray Auto 2.4 % 0.0-12.0 [facility] Eos Auto 1.1 % 0.0-7.0 [facility] Baso Auto 0.6 % 0.0-3.0 [facility] Neut 6.2 2.0-8.4 NO [facility] Absolute x10(3)/[facility] Lymph 0.5 0.6-4.8 LO [facility] Absolute x10(3)/[facility] Ray 0.2 0.0-1.1 NO [place] Absolute x10(3)/[facility] Eos Absolute 0.1 0.0-0.5 NO [place] x10(3)/[facility] Baso 0.0 0.0-0.3 NO [place] Absolute x10(3)/[facility] ID Date Data Source [id number] 11/17/2018 01:58:00 PM EDT [facility] Name Value Range Interpretation Description Data Sup porting Code Source(s) Document(s ) WBC 7.0 4.0-10.5 NO [place] x10(3)/[facility] RBC 2.70 3.80-5.20 [facility] Hgb 8.1 gm/dL 11.4-15.1 [facility] Hct 24.3 % 36.0-46.0 [facility] MCV 90 fL 80-98 [facility] MCH 29.8 pg 26.0-34.0 [facility] MCHC 33.2 32.0-36.0 NO [place] gm/dL [facility] RDW 16.5 % 11.0-15.0 [facility] Platelet 378 150-400 NO [place] x10(3)/[facility] MPV 8.1 fL 8.5-13.0 [facility] ID Date Data Source [id number] 11/03/2018 04:12:00 PM EDT [facility] [phone] Microbiology - Urine Cultures PROCEDURE: Culture,Urine Void UrineBODY SITE:COLLECTED DATE/TIME: 11/01/2018 15:01 EDT RECEIVED DATE/T DANIEL: 11/01/2018 16:46 EDTSTART DATE/TIME: 11/01/2018 16:46 EDT FREE T EXT SOURCE:ORDERING PHYSICIAN: Deisi ROCHA, Namita Meanrd FINAL REPORTSFinal R eport []Reported Date/Time: 11/03/2018 16:12 EDTNo urinary pathogens isolated. PRE LIMINARY REPORTSPreliminary Report [] Reported Date/Time: 11/02/2018 15:16 EDTNo urinary pathogens isolated. Continuing incubation Name Value Range Interpretation Code Description Data Yesi rce(s) Supporting Document(s ) ID Date Data Source [id number] 11/01/2018 03:59:00 PM EDT [facility] Name Value Range Interpretation Description Data Sup porting Code Source(s) Document(s ) UA Color Yellow NO [facility] UA Appear Clear AB [facility] UA pH 5.0-8.0 NO [facility] UA Spec Grav 1.020 1.005-1.030 NO [facility] UA Glucose Negative NO [facility] UA Ketones Negative [facility] UA Urobilinogen 0.2-1.0 NO [facility] UA Bili Negative [facility] UA Blood Negative NO [facility] UA Protein Negative AB [facility] UA Nitrite Negative [facility] UA Leuk Est Negative AB [facility] ID Date Data Source [id number] 11/01/2018 03:59:00 PM EDT [facility] Name Value Range Interpretation Description Data Sup porting Code Source(s) Document(s ) UA WBC 0-5 AB [facility] UA RBC 0-2 AB [facility] UA Bacteria None Seen NO [facility] UA Epithelial Rare NO [facility] UA Microscopic added by Discern ibrahima Yip to an Abnormal Macroscopic Result. ID Date Data Source [id number] 11/01/2018 12:43:00 PM EDT [facility] Name Value Range Interpretation Code Description Data Yesi rce(s) Supporting Document(s ) INR 1.2 ratio 0.9-1.2 NO [facility] PT 14.4 10.2-12.9 [facility] Indications INRProphylaxis ofvenous thromo-embolism: Non-hipsurgery...... .........................1.5 - 2.5 Hipsurgery.............................. .....2.0 - 3.0Deep VeinThrombosis or Pulmonary Embolism........2.0 - 3.0Preve ntion ofsystemic embolism in valvularheart disease, tissue prosthetic heartvalvesor acute [place]...................................... .2.0 -3.5Prevention of embolism in mechanical heartvalves or recurrentsystemic embolis m.............3.0 - 4.5 ID Date Data Source [id number] 11/01/2018 12:35:00 PM EDT [facility] Name Value Range Interpretation Code Description Data Yesi rce(s) Supporting Document(s ) BNP 306 pg/mL <=100 [facility] ID Date Data Source [id number] 11/01/2018 12:31:00 PM EDT [facility] Name Value Range Interpretation Code Description Data Supporting Source(s) Document(s ) Troponin- <0.03 <=0.05 NO [place] I ng/mL [facility] ID Date Data Source [id number] 11/01/2018 12:28:00 PM EDT [facility] Name Value Range Interpretation Description Data Sup porting Code Source(s) Document(s ) Magnesium 2.0 mg/dL 1.6-2.6 NO [place] [facility] ID Date Data Source [id number] 11/01/2018 12:28:00 PM EDT [facility] Name Value Range Interpretation Description Data Sup porting Code Source(s) Document(s ) Glucose Lvl 190 65-99 HI [place] mg/dL [facility] BUN 31.0 6.0-20.0 HI [place] mg/dL [facility] Creatinine 1.77 0.40-1.0 HI [place] mg/dL 0 [facility] BUN/Creat 17.5 7.0-29.0 NO [place] Ratio ratio [facility] Sodium Lvl 138 136-145 NO [place] mmol/L [facility] Potassium Lvl 3.9 3.5-5.1 NO [place] mmol/L [facility] Chloride 100 98-107 NO [place] mmol/L [facility] CO2 26 23-29 NO [place] mmol/L [facility] AGAP 12 5-15 NO [place] [facility] Calcium Lvl 8.9 8.6-10.0 NO [place] mg/dL [facility] Total Protein 6.7 6.0-8.3 NO [place] gm/dL [facility] Albumin Lvl 2.6 3.5-5.0 LO [place] gm/dL [facility] Glob 4.1 2.0-4.5 NO [place] gm/dL [facility] A/G Ratio 0.6 1.0-2.2 LO [facility] ratio [facility] Bili Total 0.6 0.3-1.2 NO [place] mg/dL [facility] Alk Phos 71 IU/L 38-126 NO [facility] AST 24 IU/L 15-41 NO [facility] ALT 20 IU/L 7-40 NO [facility] ID Date Data Source [id number] 11/01/2018 12:21:00 PM EDT [facility] Name Value Range Interpretation Code Description Data Yesi rce(s) Supporting Document(s ) eGFR-AA 33 >=60 [facility] mL/min/[address] Added by Discern Rule GLB_ADD_GFR_CMP eGFR-SANJANA 27 mL/min/1.73m2 >=60 [facility] Added by Discern Rule GLB_ADD_GFR_CMP ID Date Data Source [id number] 11/01/2018 12:06:00 PM EDT [facility] Name Value Range Interpretation Description Data Sup porting Code Source(s) Document(s ) WBC 6.8 4.0-10.5 NO [place] x10(3)/[facility] RBC 3.67 3.80-5.20 LO [place] x10(6)/[facility] Hgb 11.0 11.4-15.1 [place] gm/dL [facility] Hct 32.3 % 36.0-46.0 LO [facility] MCV 88 fL 80-98 NO [facility] MCH 30.0 pg 26.0-34.0 NO [facility] MCHC 34.1 32.0-36.0 NO [place] gm/dL [facility] RDW 14.3 % 11.0-15.0 NO [facility] Platelet 331 150-400 NO [place] x10(3)/[facility] MPV 8.5 fL 8.5-13.0 NO [facility] ID Date Data Source [id number] 11/01/2018 12:06:00 PM EDT [facility] Name Value Range Interpretation Description Data Sup porting Code Source(s) Document(s ) Neut Auto 89.0 % 50.0-80.0 [facility] Lymph Auto 4.9 % 14.0-44.0 LO [facility] Ray Auto 5.0 % 0.0-12.0 NO [facility] Eos Auto 0.6 % 0.0-7.0 NO [facility] Baso Auto 0.5 % 0.0-3.0 NO [facility] Neut 6.1 2.0-8.4 NO [place] Absolute x10(3)/[facility] Lymph 0.3 0.6-4.8 LO [place] Absolute x10(3)/[facility] Ray 0.3 0.0-1.1 NO [place] Absolute x10(3)/[facility] Eos Absolute 0.0 0.0-0.5 NO [place] x10(3)/[facility] Baso 0.0 0.0-0.3 NO [place] Absolute x10(3)/[facility] Procedure Social History Code Duration Value Status Description Data Source(s ) Smoking 11/17/2018 Ex-smoker completed Ex-smoker [facility] [employer] 01:39:29 PM EDT [facility] 11/17/2018 Ex-smoker completed Ex-smoker zlien 01:39:29 PM EDT (finding) (finding) - [facility] Smoking 11/17/2018 Ex-smoker completed [facility] 01:39:29 PM EDT (finding) (finding) - [facility] Smoking 11/17/2018 Ex-smoker completed Ex-smoker [facility] 01:39:29 PM EDT (finding) (finding) - [facility] Smoking 11/14/2018 Ex-smoker completed Ex-smoker [facility] 07:30:13 PM EDT (finding) (finding) - [facility] Smoking 11/01/2018 Ex-smoker completed Ex-smoker [facility] 01:33:49 PM EDT (finding) (finding) - [facility] Home/Environment UNK completed [facility] Substance Abuse UNK completed [facility] Denies Use Alcohol (Use Alcohol Screen Below UNK completed [facility] Denies use Home/Environment UNK completed [facility] Substance Abuse UNK completed [facility] Denies Use Alcohol (Use Alcohol Screen Below UNK completed [facility] Denies use Home/Environment UNK completed [facility] Substance Abuse UNK completed [facility] Denies Use Alcohol (Use Alcohol Screen Below UNK completed [facility] Denies use Home/Environment UNK completed [facility] Substance Abuse UNK completed [facility] Denies Use Alcohol (Use Alcohol Screen Below UNK completed [facility] Denies use Vital Signs ID Date Data Source UNK Name Value Range Interpretation Code Description Data Source(s) Respiratory rate 18 br/min 14-20 Normal (applies to 18 br/min [facility] br/min non-numeric results) - [facility] [place] Oral temperature 97.6 [degF] 96.4-99.1 Normal (applies to 97.6 [degF ] [facility] DegF non-numeric results) - [facility] [place] Oxygen saturation 92 % 94-100 % 92 % [place] in Blood - [place] Postductal by [place] Pulse oximetry Medical Ce nter Mean blood 93 mm[Hg] 93 mm[Hg] [facility] pressure by - [place] Noninvasive [facility] Heart rate 86 bpm 60-100 bpm Normal (applies to 86 bpm [facility] e Health non-numeric results) - [facility] [place] Diastolic blood 78 mm[Hg] 60-90 mmHg Normal (applies to 78 mm[Hg] [facility] pressure non-numeric results) - [facility] [place] Systolic blood 123 mm[Hg] 90-130 mmHg Normal (applies to 123 mm[Hg] [facility] pressure non-numeric results) - [facility] [place] Oxygen therapy [facility] [Minimum Data - Rosina Set] [facility] Mean blood 83 mm[Hg] 83 mm[Hg] [facility] Health pressure by - [place] Noninvasive [facility] Blood pressure [facility] measurement site - [facility] Respiratory rate 18 br/min 14-20 Normal (applies to 18 br/min [facility] br/min non-numeric results) - [facility] [place] Diastolic blood 66 mm[Hg] 60-90 mmHg Normal (applies to 66 mm[Hg] [facility] pressure non-numeric results) - [facility] [place] Systolic blood 118 mm[Hg] 90-130 mmHg Normal (applies to 118 mm[Hg] [facility] pressure non-numeric results) - [facility] [place] Oxygen saturation 94 % 94-100 % Normal (applies to 94 % [facility] in Blood non-numeric results) - [facility] Postductal by [place] Pulse oximetry Medical Ce nter Oral temperature 97.6 [degF] 96.4-99.1 Normal (applies to 97.6 [degF ] [facility] DegF non-numeric results) - [facility] [place] Heart rate 84 bpm 60-100 bpm Normal (applies to 84 bpm [facility] Peripheral artery non-numeric results) - [place] by palpation [facility] [Minimum Data - [place] Set] [facility] Heart rate 84 bpm 60-100 bpm Normal (applies to 84 bpm [facility] Peripheral artery non-numeric results) - [place] by palpation [facility] Oral temperature 97.5 [degF] 96.4-99.1 Normal (applies to 97.5 [degF ] [facility] DegF non-numeric results) - [facility] [place] Diastolic blood 71 mm[Hg] 60-90 mmHg Normal (applies to 71 mm[Hg] [facility] pressure non-numeric results) - [facility] [place] Systolic blood 140 mm[Hg] 90-130 mmHg Above high normal 140 mm[Hg] [facility] pressure - [facility] Respiratory rate 20 br/min 14-20 Normal (applies to 20 br/min [facility] br/min non-numeric results) - [facility] [place] Blood pressure [facility] measurement site - [facility] Mean blood 94 mm[Hg] 94 mm[Hg] [facility] pressure by - [place] Noninvasive [facility] Oxygen saturation 95 % 94-100 % Normal (applies to 95 % [facility] in Blood non-numeric results) - [facility] Postductal by [place] Pulse oximetry Medical nt Heart rate 85 bpm 60-100 bpm Normal (applies to 85 bpm [facility] non-numeric results) - [facility] [place] Heart rate 83 bpm 60-100 bpm Normal (applies to 83 bpm [facility] non-numeric results) - [facility] [place] Body height 163 cm 163 cm [facility] Daily Weight 46 kg 46 kg [facility] Body mass index 17.31 kg/m2 17.31 kg/m2 [facility] (BMI) [Ratio] - [facility] Usual Weight 40 kg 40 kg [facility] [place]yle Body Weight 55 kg 55 kg [facility] - [facility] Oxygen therapy [facility] al[facility] [Minimum Data - [place] Set] [facility] Inhaled oxygen 2 L/min 2 L/min [facility] alth flow rate - [facility] Glucose 112 mg/dL 65-100 Above high normal 112 mg/dL [facility] Health [Moles/volume] in mg/dL - [facility] Capillary blood [place] by [facility] [address] [facility] Inhaled oxygen 2 L/min 2 L/min [facility] alth flow rate - [facility] Inhaled oxygen 2 L/min 2 L/min [facility] He alth flow rate - [facility] Body mass index 16.94 kg/m2 16.94 kg/m2 [facility] (BMI) [Ratio] - [facility] Body weight 45 kg 45 kg [facility] h Measured - [facility] Body height 163 cm 163 cm [facility] h - [facility] Body mass index 16.94 kg/m2 16.94 kg/m2 [facility] (BMI) [Ratio] - [facility] Oxygen saturation 94 % 94-100 % Normal (applies to 94 % [facility] in Blood non-numeric results) - [facility] Postductal by [place] Pulse oximetry Medical Ce nter Oxygen therapy [facility] alth [Minimum Data - [place] Set] [facility] Respiratory rate 18 br/min 14-20 Normal (applies to 18 br/min [facility] br/min non-numeric results) - [facility] [place] Diastolic blood 70 mm[Hg] 60-90 mmHg Normal (applies to 70 mm[Hg] [facility] pressure non-numeric results) - [facility] [place] Systolic blood 118 mm[Hg] 90-130 mmHg Normal (applies to 118 mm[Hg] [facility] Health pressure non-numeric results) - [facility] [place] Heart rate 99 bpm 60-100 bpm Normal (applies to 99 bpm [facility] non-numeric results) - [facility] [place] Oral temperature 98.2 [degF] 96.4-99.1 Normal (applies to 98.2 [degF ] [facility] DegF non-numeric results) - [facility] [place] Body mass index 15.39 kg/m2 15.39 kg/m2 [facility] (BMI) [Ratio] - [facility] Body height 163 cm 163 cm [facility] h - [facility] Body weight 40.9 kg 40.9 kg [facility] h Measured - [facility] Body mass index 15.39 kg/m2 15.39 kg/m2 [facility] (BMI) [Ratio] - [facility] Respiratory rate 16 br/min 14-20 Normal (applies to 16 br/min [facility] br/min non-numeric results) - [facility] [place] Diastolic blood 56 mm[Hg] 60-90 mmHg 56 mm[Hg] [facility] ealth pressure - [facility] Systolic blood 103 mm[Hg] 90-130 mmHg Normal (applies to 103 mm[Hg] [facility] [employer] pressure non-numeric results) - [facility] [place] Oxygen therapy [facility] alth [Minimum Data - [place] Set] [facility] Oxygen saturation 94 % 94-100 % Normal (applies to 94 % zlien in Blood non-numeric results) - [facility] Postductal by [place] Pulse oximetry Medical Ce nter Heart rate 106 bpm 60-100 bpm Above high normal 106 bpm [facility] - [facility] Oral temperature 97.7 [degF] 96.4-99.1 Normal (applies to 97.7 [degF ] [facility] DegF non-numeric results) - [facility] [place] Diastolic blood 56 mm[Hg] 60-90 mmHg 56 mm[Hg] [facility] e[facility] pressure - [facility] Systolic blood 103 mm[Hg] 90-130 mmHg Normal (applies to 103 mm[Hg] N [employer] pressure non-numeric results) - [facility] [place] Heart rate 106 bpm 60-100 bpm Above high normal 106 bpm [facility] - [facility] Mean blood 71 mm[Hg] 71 mm[Hg] [facility] pressure by - [place] Noninvasive [facility] Oxygen saturation 94 % 94-100 % Normal (applies to 94 % [facility] in Blood non-numeric results) [facility] [place] Pulse oximetry Medical Ce nter Oral temperature 97.7 [degF] 96.4-99.1 Normal (applies to 97.7 [degF ] [facility] DegF non-numeric results) - [facility] [place] Mean blood 94 mm[Hg] 94 mm[Hg] [facility] pressure by - [facility] Diastolic blood 79 mm[Hg] 60-90 mmHg Normal (applies to 79 mm[Hg] [facility] pressure non-numeric results) - [facility] [place] Systolic blood 125 mm[Hg] 90-130 mmHg Normal (applies to 125 mm[Hg] N [facility] pressure non-numeric results) - [facility] [place] Oxygen saturation 98 % 94-100 % Normal (applies to 98 % [facility] in Blood non-numeric results) - [facility] Postductal by [place] Pulse oximetry Medical nter Oral temperature 98.1 [degF] 96.4-99.1 Normal (applies to 98.1 [degF ] [facility] DegF non-numeric results) - [facility] [place] Respiratory rate 18 br/min 14-20 Normal (applies to 18 br/min [facility] br/min non-numeric results) - [facility] [place] Heart rate 82 bpm 60-100 bpm Normal (applies to 82 bpm [employer] [facility] non-numeric results) - [facility] [place] Mean blood 84 mm[Hg] 84 mm[Hg] [facility] pressure by - [facility] Diastolic blood 67 mm[Hg] 60-90 mmHg Normal (applies to 67 mm[Hg] [facility] pressure non-numeric results) - [facility] [place] Systolic blood 118 mm[Hg] 90-130 mmHg Normal (applies to 118 mm[Hg] [facility] pressure non-numeric results) - [facility] [place] Respiratory rate 18 br/min 14-20 Normal (applies to 18 br/min [facility] br/min non-numeric results) - [facility] [place] Heart rate 106 bpm 60-100 bpm Above high normal 106 bpm [facility] - [facility] Oxygen saturation 87 % 94-100 % 87 % [facility] Blood - [place] Postductal by [place] Pulse oximetry Medical nter Oral temperature 97.7 [degF] 96.4-99.1 Normal (applies to 97.7 [degF ] [facility] DegF non-numeric results) - [facility] [place] Oral temperature 97.7 [degF] 96.4-99.1 Normal (applies to 97.7 [degF ] [facility] DegF non-numeric results) - [facility] [place] Respiratory rate 18 br/min 14-20 Normal (applies to 18 br/min [facility] br/min non-numeric results) - [facility] [place] Heart rate 106 bpm 60-100 bpm Above high normal 106 bpm [facility] - [facility] Oxygen saturation 87 % 94-100 % 87 % [facility] Neuro Kinetics in Blood - [place] Postductal by [place] Pulse oximetry Medical nt Body height 157 cm 157 cm [facility] - [facility] Body mass index 15.82 kg/m2 15.82 kg/m2 [facility] (BMI) [Ratio] - [facility] Diastolic blood 67 mm[Hg] 60-90 mmHg Normal (applies to 67 mm[Hg] [facility] pressure non-numeric results) - [facility] [place] Systolic blood 118 mm[Hg] 90-130 mmHg Normal (applies to 118 mm[Hg] [facility] pressure non-numeric results) - [facility] [place] Body weight 39 kg 39 kg [facility] Measured - [facility] Body mass index 15.82 kg/m2 15.82 kg/m2 [facility] (BMI) [Ratio] - [facility] Patient Treatment Plan of Care Planned Activity Planned Date Details Description Data Source (s) No data available for this [facility] No data available for this [facility] No data available for this [facility] No data available for this [facility] No data available for this [facility] No data available for this [facility] Aspirin 81 MG Delayed 11/19/2018 10:13:00 [facility] - Release Oral Tablet AM EDT [facility] Docusate Sodium 100 MG 11/19/2018 10:09:00 [facility] - Oral Capsule AM EDT [facility] Cephalexin 500 MG Oral 11/01/2018 04:04:00 [facility] - Capsule PM EDT [facility] Docusate Sodium 100 MG 01/28/2018 10:13:00 [facility] - Oral Capsule AM EDT [facility] Sucralfate 1000 MG Oral 01/24/2018 10:24:00 [facility] - Tablet PM EDT [facility] Levothyroxine Sodium 0.075 01/24/2018 10:24:00 [facility] - MG Oral Tablet PM EDT [facility] Ferrous Sulfate 10/25/2017 01:55:00 [facility] - AM EDT [facility] Breo Ellipta 200 mcg-25 08/27/2017 03:23:00 [facility] - mcg/inh inhalation PM EDT [facility] Pantoprazole 05/29/2017 10:09:00 [facility] - PM EST [facility] multivitamin 05/29/2017 10:06:00 [facility] - PM EST [facility] Plavix 05/18/2016 02:52:00 [facility] - PM EST [facility] Incruse Ellipta 05/15/2016 04:29:00 [facility] - PM EST [facility] donepezil 05/14/2016 10:41:00 [facility] - AM EST [facility] atorvaSTATin 05/14/2016 10:41:00 [facility] - AM [facility] Metoprolol Succinate ER 05/14/2016 10:41:00 [facility] - AM EST [facility] vitamin E 05/14/2016 10:41:00 [facility] spironolactone 05/14/2016 10:41:00 [facility] lindsay [facility]
[2020-01-29 20:13] VITALS: BP 93/58; TEMP 97.8; BMI 14.5
[2020-01-29 20:29] VITALS: PULSE 82
--- NOTE | 2020-01-29 20:33 | PDOC ---
History of Present Illness - General Chief Complaint: Injury Stated Complaint: FALL, LEFT HIP/BUTTOCK/GROIN PAIN Time Seen by Provider: 01/29/20 19:55 History Source: Patient, Family Exam Limitations: Dementia - History of Present Illness Initial Comments: 01/29/20 20:35 HPI 84 year old female, with a past medical history of OH s/p stents, on plavix, [place] PD on 2-3L O2 at home, bronchitis, PNA, diverticulitis and tobacco dependence (2 packs daily for 65 years), HTN, HLD, hypothyroidism, dementia, presenting with unwitnessed fall last night. Pt's son and daughter in law stepped aside to go into restaurant, when she was waiting in the car, and then they heard her scream, found her on her back on the ground. No reported head injury or LOC, sz activity or AMS. Family suspected her legs got weak and she fell down. Since last night, she has complained of lower back pain, worse on the left, radiating to the hip and groin. usually independent, able to ambulate with minimal assistive device.. Allergies: None Review of systems Limited 2/2 dementia Of note - MSK +back pain, buttock pain Physical exam General: pleasant elderly female, awake and alert, NAD. HEENT: NCAT, PERRL, EOMI, clear conjunctiva, anicteric, moist mucus membranes, clear oropharynx, no oral lesions.. Neck: neck supple, FROM Resp: CTAB, normal and even respirations, no respiratory distress CVS: RRR, no murmurs, 2+ peripheral pulses throughout, no peripheral edema Abdomen: soft, nondistended. +suprapubic TTP, no rebound or guarding. Back: +left lower lumbar paraspinal TTP, no overlying ecchymosis or skin discoloration, normal inspection and ROM Pelvis: stable, FROM at the pelvic girdle. no hip tenderness. MSK: no edema, BARCENAS x4, ROM intact. No clubbing or cyanosis. normal bulk and tone. Extremities: no calf tenderness Neuro: alert, oriented to person only, baseline demented. no focal neurologic deficits. wiggles toes, sensation grossly intact in all extremities Psych: Calm and cooperative Skin: warm and well perfused, cap refill <2 sec, normal color, no rash or skin discoloration. old ecchymosis/blood blister to b/l elbows posteriorly and nontender. 01/29/20 20:38 01/29/20 20:45 01/29/20 21:55 Past History - Medical History Allergies/Adverse Reactions: Allergies Allergy/AdvReac Type Severity Reaction Status Date / Time No Known Allergies Allergy Verified 01/29/20 19:54 Home Medications: Ambulatory Orders Atorvastatin Ca [Lipitor] 20 mg PO DAILY 01/29/20 Clopidogrel Bisulfate [Clopidogrel] 75 mg PO ASDIR 01/29/20 Donepezil HCl 10 mg PO DAILY 01/29/20 Ferrous Sulfate 325 mg PO DAILY 01/29/20 Fluticasone/Vilanterol [Breo Ellipta 200-25 Mcg INH] 1 each IH ASDIR 01/29/20 Levothyroxine [Synthroid -] 75 mcg PO DAILY 01/29/20 Lidocaine 5% Patch [Lidoderm Patch -] 1 patch TP DAILY #7 patch 01/29/20 Metoprolol Succinate [Toprol Xl] 25 mg PO DAILY 01/29/20 Multivitamin [Multiple Vitamins] 1 each PO DAILY 01/29/20 Nitrofurantoin Monohyd/M-Cryst [Macrobid -] 100 mg PO BID #14 capsule 01/29/20 Pantoprazole Sodium [Protonix] 40 mg PO DAILY 01/29/20 Vitamin E 1,000 unit PO DAILY 01/29/20 Cardiac Disorders: Yes ([place]) COPD: Yes Dementia: Yes GI Disorders: Yes (DIVERTICULITIS) HTN: Yes Thyroid Disease: Yes - Surgical History Cardiac Surgery: Yes (STENT) - Reproductive History Is Patient Now?: No - Psycho-Social/Smoking History Smoking History: Unknown if ever smoked Number of Cigarettes Smoked Daily: 40 'Breaking Loose' booklet given: 09/08/15 - Substance Abuse Hx (Audit-C & DAST Scrn) How often the patient has a drink containing alcohol: Never Score: In Men: 4 or > Positive; In Women: 3 or > Positive: 0 Screen Result (Pos requires Nsg. Audit-10AR): Negative Review of Systems - Review of Systems Able to Perform ROS?: No (dementia) *Physical Exam - Vital Signs Last Vital Signs Temp Pulse Resp BP Pulse Ox 97.8 F 82 20 93/58 L 98 01/29/20 19:53 01/29/20 19:55 01/29/20 19:53 01/29/20 19:53 01/29/20 19:55 Medical Decision Making - Medical Decision Making 01/29/20 20:[address] imaging indicated, no head injury, at baseline dementia and mental status due to unwitnessed fall, c/o primarily lower back pain and groin pain, will check xray imaging to eval for fx/dislocation NVI here, pelvis is stable. no complaints aside from back and hip pain analgesia here with tylenol and lidoderm patch, reassess VS reviewed, wnl - she is thin, BP is 90s/50s, but she is mentating at her baseline and does not appear dehydrated or toxic or septic. sats borderline, but baseline she is 93% and requires 2L O2 via NC for her COPD and long standing smoking history. Xray lumbar spine normal joint space alignment, no acute fx or dislocation. there are degenerative changes noted. +fecal retention noted xray pelvis neg for fx. degenerative changes noted, no hip fx or subluxation seen calcified vasculature seen UA prelim with s/s infection, with +leuk esterase and copious WBCs>10, given her abdominal pain, leg weakness - will treat this as likely UTI neuro intact, no radicular sx. doubt central spinal or [employer] pathology Discussed results with patient and family treating UTI with macrobid x 7 day course f/u urine cultures fall safety prevention discussed analgesia with tylenol and lidoderm patch prn. verbalized understanding of impression and plan 01/29/20 21:33 01/29/20 21:38 01/29/20 21:55 Discharge - Discharge Information Problems reviewed: Yes Clinical Impression/Diagnosis: UTI (urinary tract infection), Lumbar back pain Condition: Stable Disposition: HOME - Admission No - Additional Discharge Information Prescriptions: Lidocaine 5% Patch [Lidoderm Patch -] 1 patch TP DAILY #7 patch Nitrofurantoin Monohyd/M-Cryst [Macrobid -] 100 mg PO BID #14 capsule - Follow up/Referral Referrals: [facility] [place] [Provider Group] [facility] [Provider Group] - Patient Discharge Instructions Patient Printed Discharge Instructions: DI for Low Back Pain, DI for Urinary Tract Infection (UTI), How to Prevent Falls Additional Instructions: 1) Please follow-up with your primary care doctor in the next 1-2 days. Please call tomorrow for for any urgent issues. 2) You were given a copy of the tests performed today. Please bring the results with you and review them with your primary care doctor. Your laboratory / imaging results were remarkable for a urinary tract infection, follow up on your urine culture in the next 24-48 hours. your x ray imaging of hips, pelvis and back negative for acute fracture or abnormalities 3) If you have any worsening of symptoms or any other concerns please return to the ED immediately. Return if worsening symptoms including fevers, headache, vomiting, visual or hearing disturbances, abdominal pain, chest pain, shortness of breath, syncope, dehydration, inability to take things by mouth/vomiting, altered mental status, or worsening concerning symptoms. 4) Please continue taking your home medications as directed. your medications on discharge include Macrobid twice a day x 1 week . side effects may include upset stomach, abdominal pain, vomiting, or diarrhea. do not drink alcohol with your medications. you can take tylenol as needed for pain control Lidoderm patch - 12 hours on and 12 hours off for her lower back pain. Stay well hydrated and rest adequately. Make an appointment. If you cannot follow-up with your primary care doctor please return to the ED FALL PREVENTION AT HOME WHAT YOU NEED TO KNOW There are many different factors that can increase your risk of falls. Falls can happen any time, but the majority of them occur in the home. Fall prevention includes ways to make your home and other areas safer. It also includes ways you can move more carefully to prevent a fall. Health conditions that cause changes in your blood pressure, vision, or muscle strength and coordination may increase your risk for falls. Medicines, including anesthesia, may increase your risk for falls if they make you dizzy, weak, or sleepy. FALL PREVENTION TIPS Stand or sit up slowly. This may help you keep your balance and prevent falls. Do not walk and talk at the same time. Concentrate on the task of walking and continue the conversation after you've reached a safe place. Wear shoes that fit well and have soles that pump and blower operator. Wear shoes both inside and outside. Use slippers with good pump and blower operator. Avoid shoes with high heels. Use assistive devices as directed. Your healthcare provider may suggest that you use a cane or walker to help you keep you balance. Be sure you have adequate lighting throughout your house. Keep paths clear. Remove books, shoes and other objects from walkways and stairs. Keep cords for telephones and lamps out of the way so you dont need to walk over them. Remove small rugs or secure them with double-sided tape. This will prevent you from tripping. Use a nightlight when getting out of bed at night. Stay active to maintain overall strength and endurance. Know your limitations. If there is a task you can not complete with ease, do not risk a fall by trying to complete it. Call 911 or have someone else call if: You have fallen and are unconscious You have fallen and cannot move part of your body Contact your healthcare provider if: You have fallen and have pain or a headache You have questions or concerns about your condition or care. - Post Discharge Activity
[2020-01-29] MEDS ORDERED: LIDOCAINE 5% TOPICAL PATCH TP ONE (20:34)
[2020-01-29] MEDS ORDERED: ACETAMINOPHEN 325 MG TABLET (FP) PO ONE (20:34)
[2020-01-29] MEDS ORDERED: ACETAMINOPHEN 325 MG TABLET (FP) ONE (20:39)
[2020-01-29] MEDS ORDERED: LIDOCAINE 5% TOPICAL PATCH ONE (20:39)
[2020-01-29 21:17] LABS: EPITHELIAL CELLS MODERATE /hpf
[2020-01-29] MEDS ORDERED: NITROFURANTOIN MACROCRYSTAL 50 MG CAPSULE (FP) ONE (21:35)
[2020-01-29] MEDS ORDERED: NITROFURANTOIN MACROCRYSTAL 50 MG CAPSULE (FP) PO SCH (21:45)
== END 2020-01-29 21:50 | disposition home or self-care (01) ==
LOC: FER 19:53
DX: N39.0 Urinary tract infection, site not specified (principal); M54.5 Low back pain
CPT/HCPCS: 72100-TC-FY; 73523-TC-FY; 81003; 81015; 87086; 87186; 99285-25